=== PATIENT | male | born 1990 ===

== ENCOUNTER 2018-01-23 17:18 | Emergency (ER) | payer SELFPAY ==
[2018-01-23] MEDS ORDERED: Proparacaine 0.5% Opth 15 ML BOT ONE (19:27)
[2018-01-23] MEDS ORDERED: Fluorescein Opthalmic Strip ONE (19:27)
== END 2018-01-23 20:26 | disposition home or self-care (01) ==
LOC: ERS 17:18
DX: H10.023 Other mucopurulent conjunctivitis, bilateral (principal)
CPT/HCPCS: 99282